=== PATIENT | female | born 1950 | race Caucasian/White ===

== ENCOUNTER 2024-01-25 10:44 | Outpatient (CLI) | payer MEDICARE, BC, SELFPAY ==
--- NOTE | 2024-01-25 10:45 | CRLHL7_ITS ---
For Patients: As a result of the Cures Act, medical imaging exams and procedure reports are released immediately into your electronic medical record. You may view this report before your referring provider. If you have questions, please contact your health care provider. Examination: US abdominal aorta Indication: Abdominal aortic aneurysm screening. Technique: Gomez scale and color Doppler images of the aorta and common iliac arteries are obtained. Comparison: None Findings: Proximal aorta: 2.4 x 3.0 cm Mid aorta: 1.6 x 1.7 cm Distal aorta: 1.6 x 1.6 cm Right common iliac artery: 1.1 x 1.3 cm Left common iliac artery: 1.0 x 1.2 cm Impression: No abdominal aortic aneurysm. Dictated by Ruiz Henley MD @ 01/25/2024 12:01:24 PM (Electronically Signed)
== END 2024-01-25 10:45 | disposition home or self-care (01) ==
PROVIDERS: PCP Family Medicine; Visit Provider Family Medicine
DX: Z13.6 Encounter for screening for cardiovascular disorders (principal)
CPT/HCPCS: 76775